=== PATIENT | female | born 1950 | race Caucasian/White ===

== ENCOUNTER 2018-06-29 20:49 | Emergency (ER) | payer MEDICARE ==
[~2018-06-29] VITALS: Ht 162.6 cm; Wt 93.0 kg
[~2018-06-29 20:49] MED LIST: ALLEGRA-D 12 H1 EACH PO; ASPIR 8181 MG PO; BUTALB-ACETAMI1 EACH PO; CALCIUM CARBON500 MG PO; CEFTIN500 MG PO; CITALOPRAM HBR20 MG PO; DITROPAN XL5 MG PO; FISH OIL500 M1 PO; MAXALT10 MG PO; SENNOSIDES8.6 MG PO; SIMVASTATIN20 MG PO; TYLENOL WITH C1 EACH PO; ULTRAM50 MG PO; ZOFRAN ODT4 MG PO
--- OUTSIDE RECORDS SUMMARY | 2018-06-29 20:52 | XMS REPORT | Summary of Care ---
Author Author Miguelito Bravo R.N. Unknown Address Unknown Phone Unavailable Care Team Providers Care Freight Sorter Name Role Phone LIAT RODGERS Unavailable Unavailable HILARIA Barker, ANGELICA Unavailable Unavailable SHANTELLE Barker, MUKUL Unavailable Unavailable HUSEYIN Barker, CAROLYN Unavailable Unavailable Lawrence Shirley, Miguelito Unavailable Unavailable HILARIA GODINEZ, ANGELICA [place] Unavailable Unavailable SHANIA Barker, MILE Unavailable Unavailable DANITA GODINEZ [place], EULOGIO HERRERA Unavailable Unavailable BERENICE GODINEZ [place], MOY GOYAL Unavailable Unavailable Shantelle GODINEZ, Mukul Unavailable Unavailable HUSEYIN GODINEZ, CAROLYN Unavailable Unavailable Unavailable Unavailable Functional Status Name Dates Details Functional status health issues are not documented Status: Name Dates Details Cognitive status health issues are not documented Status: Problems Name Dates Details Paronychia of finger (681.02, L03.019) Status: Active Back pain (724.5, M54.9) Status: Active Microscopic hematuria (599.72, R31.29) Status: Active IBS (irritable bowel syndrome) (564.1, K58.9) Status: Active Kidney stone (592.0, N20.0) Status: Active Urinary incontinence (788.30, R32) Status: Active Flu vaccine need (V04.81, Z23) Status: Active Edema (782.3, R60.9) Status: Active Trigger finger of right thumb (727.03, M65.311) Status: Active Arthralgia (719.40, M25.50) Status: Active Need for pneumococcal vaccine (V03.82, Z23) Status: Active Trigger ring finger of right hand (727.03, M65.341) Status: Active Trigger ring finger of left hand (727.03, M65.342) Status: Active Bronchospasm (519.11, J98.01) Status: Active Peripheral edema (782.3, R60.9) Status: Active Stress (V62.89, F43.9) Status: Active Rhus dermatitis (692.6, L25.5) Status: Active Medicare annual wellness visit, subsequent (V70.0, Z00.00) Status: Active Anxiety disorder (300.00, F41.9) Status: Active Migraine without status migrainosus, not intractable (346.90, G43.909) Status: Active Breast screening (V76.10, Z12.31) Status: Active Postmenopausal state (V49.81, Z78.0) Status: Active Need for hepatitis C screening test (V73.89, Z11.59) Status: Active Advance care planning (V65.49, Z71.89) Status: Active Encounter for mini-mental status examination Status: Active Depression screen (V79.0, Z13.31) Status: Active At low risk for fall (V49.89, Z91.81) Status: Active Shingles (053.9, B02.9) Status: Active Colon cancer screening (V76.51, Z12.11) Status: Active Dermatitis (692.9, L30.9) Status: Active Acute purulent bronchitis (466.0, J20.8) Status: Active Hyperlipidemia (272.4, E78.5) Status: Active Venous insufficiency (chronic) (peripheral) (459.81, I87.2) Status: Active Non-healing ulcer (707.9, L98.499) Status: Active Acute pain of left knee (719.46, M25.562) Status: Active Hip pain, left (719.45, M25.552) Status: Active Medications Name Dates Details Simvastatin 20 MG Oral Tablet TAKE ONE TABLET BY MOUTH ONCE DAILY Quantity: 90 HILARIA M.DCasimiro, ANGELICA * Start : 24-Oct-2013 Active Aspirin 81 MG TABS TAKE 1 TABLET DAILY. * Refills: 0 Active Adenike-D Allergy & Congestion TB24 TAKE 1 TABLET DAILY PRN * Refills: 0 Active Citalopram Hydrobromide 20 MG Oral Tablet TAKE 1 TABLET Daily * Quantity: 90 Refills: 1 HILARIA M.DCasimiro, ANGELICA * Start : 30-Apr-2015 Active Ytuwdgnviy-KSCD-Fykfjrew 50-325-40 MG Oral Capsule TAKE 1 TO 2 CAPSULES BY MOUTH EVERY 4 HOURS NEEDED FOR PAIN * Quantity: 30 Refills: 2 HILARIA M.D., ANGELICA * Start : 05-Dec-2016 Active predniSONE 10 MG Oral Tablet take 3 po x 3 days then 2 po x3 days then 1 po x 3 days * Quantity: 18 Refills: 0 ZARATE P.A., LIAT * Start : 19-Apr-2018 Active valACYclovir HCl - 1 GM Oral Tablet TAKE 1 TABLET BY MOUTH THREE TIMES DAILY * Quantity: 21 Refills: 0 ZARATE P.A., LIAT * Start : 13-May-2018 Active Gabapentin 100 MG Oral Capsule TAKE 1 CAPSULE DAILY * Quantity: 30 Refills: 2 ZARATE P.A., LIAT * Start : 19-Apr-2018 Active Clenpiq 10-3.5-12 MG-GM -GM/160ML Oral Solution Drink first bottle at 5pm, Drink second bottle at 10pm. Follow doctors instruct ions. * Quantity: 1 Refills: 0 MUKUL PEPPER M.D. * Start : 29-Apr-2018 Active 2 x 160 ML Bottle Hydrocortisone 2.5 % External Cream APPLY 2-3 TIMES DAILY TO AFFECTED AREA(S).-1-2 weeks or as needed * Quantity: 1 Refills: 0 CAROLYN FONTANEZ M.D. * Start : 13-May-2018 Active 20 GM Tube SUMAtriptan Succinate 100 MG Oral Tablet TAKE ONE TABLET BY MOUTH NEEDED FOR HEADACHE. MAY REPEAT IN 2 HOURS IF NEEDED . MAX 2 TABS IN 24 HRS. * Quantity: 15 Refills: 2 ANGELICA MANRIQUE M.D. * Start : 05-Jun-2018 Active methylPREDNISolone 4 MG Oral Tablet Therapy Pack TAKE DIRECTED. * Quantity: 1 Refills: 0 ANGELICA MANRIQUE M.D. * Start : 27-Jun-2018 Active 21 Tablet Pack Allergies and Adverse Reactions Name Dates Details No Known Drug Allergies (Allergy) Status: Active Tape (Allergy) Status: Active Past Medical History Name Dates Details History of fatigue (V13.89, Z87.898) Status: Resolved History of hematuria (V13.09, Z87.448) Status: Resolved History of low back pain (V13.59, Z87.39) Status: Resolved History of Migraine without status migrainosus, not intractable (346.90, G43.909) Status: Resolved History of Osteoarthritis (V13.4) Status: Resolved History of Sinusitis (473.9, J32.9) Status: Resolved Personal history of urinary tract infection (V13.02, Z87.440) Status: Resolved Procedures Procedure Dates Details Colonoscopy Date: 29-Apr-2018 XRAY Hip min 2 views [id number] Date: 27-Jun-2018 History of Foot Surgery Completed History of Hysterectomy Completed History of Neuroplasty Decompression Median Nerve At Carpal Tunnel Completed History of Bladder Surgery Completed History of Hand Surgery Completed History of Knee Replacement Completed Immunization Name Dates Details Tetanus on: 29-Feb-2012 Fluzone INJ Lot #: [id number] on: 01-Nov-2012 Influenza Lot #: [id number] on: 06-Dec-2013 Pneumococcal polysaccharide vaccine, 23 valent Lot #: [id number] on: 15-Jan-2014 Fluvirin INJ Lot #: [id number] on: 09-Nov-2014 Fluzone Quadrivalent 0.5 ML Intramuscular Suspension Lot #: [id number] on: 17-Dec-2015 Fluzone Quadrivalent 0.5 ML Intramuscular Suspension Lot #: [id number] on: 29-Nov-2016 Prevnar 13 Intramuscular Suspension Lot #: [id number] on: 29-Nov-2016 Fluzone High-Dose 0.5 ML Intramuscular Suspension Prefilled Syringe Lot #: [id number] on: 14-Nov-2017 Family History Name Dates Details Family history of Diabetes Mellitus (V18.0) Comments: Family History Status: Active Family history of Coronary Artery Disease (V17.49) Comments: Family History Status: Active Family history of Cancer Comments: Family History Status: Active Name Dates Details Family history of Heart Disease (V17.49) Status: Active Name Dates Details Family history of Coronary Artery Disease (V17.49) Status: Active Social History Name Dates Details - Status: Name Dates Details Never smoker Vital Signs Date Test Result Details 6-Rxf-614739:39 BP Systolic 146 mm[Hg] Status: Comments: Location: LUE; Position: Sitting BP Diastolic 69 mm[Hg] Status: Comments: Location: LUE; Position: Sitting Height 63 in Status: Weight 235.4375 lb Status: Body Mass Index Calculated 41.71 kg/m2 Status: Body Surface Area Calculated 2.07 m2 Status: Temperature 97.7 f Status: Comments: Method: Temporal Heart Rate 76 /min Status: Respiration Rate 16 /min Status: Physical Findings 0 Status: Comments: Pain Scale Physical Findings 0 Status: Comments: Alcohol Screen - How many times in the past yr have you had 5 (for M) or 4 (for F) or 4 (for all > 65yrs) or more drinks in a day? Results Date Description Value Details 5-Pbz-216433:24 XRAY Knee 3 views 34544 Knee 3 views SEE NOTES Comments: EXAM: XR KNEE 3 VIEWSDATE: 06/27/2018 15:24 CDTINDICATION: - M25.562 Pain in left kneeCOMPARISON: Bilateral knee series 11/19/2009TECHNIQUE: 3 views of the kneeLaterality: LeftFINDINGS: No acute fracture or malalignment is identified. Severe medial andpatellofemoral compartments. Joint space narrowing with subarticular sclerosis.Large tricompartmental osteophytes.Small knee joint effusion. Small ossified body in the suprapatellar recess.IMPRESSION: Unchanged severe knee osteoarthrosis.--Read by: Wayne Dias MDDictated Date/time: 06/27/18 17:49Electronically Signed by: Wayne Dias MD 06/27/1916:50FINAL REPORT 6-[id number]:23 Hip 2/3 views uni DX SEE NOTES Comments: EXAM: XR HIP 2 VIEW AND AP PELVISDATE: 06/27/2018 15:23 CDTINDICATION: - M25.552 Pain in left hipCOMPARISON: NoneTECHNIQUE: 2 views of the hip and a single AP radiograph of the pelvisLaterality: LeftFINDINGS: No acute fracture or malalignment is identified. Bilateral mildsuperomedial hip joint space narrowing with small marginal osteophytes. Jointspace narrowing, sclerosis, and osteophytes of the left sacroiliac joint. Mildpelvic enthesopathy. Moderate facet arthropathy lower lumbar spine.No soft tissue abnormality is identified.IMPRESSION: 1. Mild bilateral hip osteoarthrosis.2. Moderate left sacroiliac osteoarthrosis.--Read by: Wayne Dias MDDictated Date/time: 06/27/18 17:50Electronically Signed by: Wayne Dias MD 06/27/1916:52FINAL REPORT 5-[id number]:45 Tobacco Use Screening Completed DONE Plan of Care Name Dates Details Planned Observations Planned Goals not documented Planned Encounters Appointment; NIDIA SOTO M.D. On: 07-Aug-2018 10:30 Interventions Provided Discussion/Summary* Guideline Used: * Clinic: [facility] * PT called to report L-knee pain 10/05 unrelieved by recently prescribed methyprednisolone. PT denies any new symptoms, states she is ambulatory with the use of assistive device. Chart review done. Informed pt that there is a walk in clinic today till 1300, pt refused and requested for the oncology consultant to called for recommendations. Spoke with Liat FARAH at [phone], as per PA instructions pt informed to call on Sunday to have MRI and ortho referral scheduled. PT verbalized understanding. Also informed pt that she can take Aleve but pt refused and states she does not want to take medications. * * Home: * Intended Caller Action: * Other: Speak with clinical staff. * Additional Information: * Information given. Instructions Name Dates Details Instructions not documented Encounters Appointment; ANGELICA MANRIQUE M.D. Encounter Diagnosis: Problem not documented On: 29-Nov-2016 9:00 Appointment; EVANS GREER M.D. Encounter Diagnosis: Problem not documented On: 14-Dec-2016 8:15 Appointment; ANGELICA MANRIQUE M.D. Encounter Diagnosis: Problem not documented On: 14-Dec-2016 10:00 Appointment; ANGELICA MANRIQUE M.D. Encounter Diagnosis: Problem not documented On: 11-Jan-2017 9:30 Appointment; STEPAN RICKS D.O. Encounter Diagnosis: Problem not documented On: 12-Mar-2017 16:30 Appointment; ANGELICA MANRIQUE M.D. Encounter Diagnosis: Problem not documented On: 11-Sep-2017 10:30 Appointment; ANGELICA MANRIQUE M.D. Encounter Diagnosis: Problem not documented On: 14-Nov-2017 9:00 Appointment; ANGELICA MANRIQUE M.D. Encounter Diagnosis: Problem not documented On: 03-Apr-2018 9:00 Appointment; LIAT ZARATE P.A. Encounter Diagnosis: Problem not documented On: 19-Apr-2018 14:45 Appointment; MUKUL PEPPER M.D. Encounter Diagnosis: Problem not documented On: 29-Apr-2018 10:15 Appointment; CAROLYN FONTANEZ M.D. Encounter Diagnosis: Problem not documented On: 13-May-2018 9:30 Appointment; ANGELICA MANRIQUE M.D. Encounter Diagnosis: Problem not documented On: 24-May-2018 9:15 Appointment; EULOGIO SAMAYOA M.D. Encounter Diagnosis: Problem not documented On: 07-Jun-2018 9:15 Appointment; ANGELICA MANRIQUE M.D. Encounter Diagnosis: Problem not documented On: 27-Jun-2018 14:45
[2018-06-29] MEDS ORDERED: KETOROLAC TROMETHAMINE 60 MG/2 ML VIAL IM ONE (22:15)
[2018-06-29] MEDS ORDERED: HYDROCODONE/APAP 10MG-325MG TAB PO ONE (22:15)
--- NOTE | 2018-06-29 22:34 | Diagnostic Imaging Report ---
KNEE LEFT THREE VIEWS - 3 views HISTORY: Pain COMPARISON: None available. FINDINGS: No acute fracture or dislocation. Tricompartmental degenerative changes, most severe at the patellofemoral compartment. No suprapatellar joint effusion. Medial collateral ligament and quadriceps tendon calcifications. IMPRESSION: No acute fracture or dislocation. Tricompartmental degenerative changes, most severe at the patellofemoral compartment. Signed by: Dr. Abiodun Brown MD on 06/29/2018 10:31 PM
[2018-06-29] MEDS ORDERED: ULTRAM50 MG PO (22:40)
--- NOTE | 2018-06-29 22:50 | NUR ---
KNEE IMMOBILIZER PLACED TO L LEG AND ADJUSTED TO COMFORT
== END 2018-06-29 22:53 | disposition home or self-care (01) ==
LOC: ER 20:49
DX: S80.02XA Contusion of left knee, initial encounter (principal); S83.412A Sprain of medial collateral ligament of left knee, initial encounter; M17.12 Unilateral primary osteoarthritis, left knee; E78.5 Hyperlipidemia, unspecified; F41.9 Anxiety disorder, unspecified; F32.9 Major depressive disorder, single episode, unspecified
CPT/HCPCS: 29530; 73562; 96372; 99283; J1885

== ENCOUNTER 2018-09-23 18:10 | Emergency (ER) | payer MEDICARE ==
[~2018-09-23] VITALS: Ht 162.6 cm; Wt 93.0 kg
--- OUTSIDE RECORDS SUMMARY | 2018-09-23 18:14 | XMS REPORT ---
Author Author [facility] Address Unknown Phone Unavailable Care Team Providers Care Field Court Researcher Name Role Phone Edwige ERICKSON Unavailable Unavailable Problems This patient has no known problems. Allergies, Adverse Reactions, Alerts This patient has no known allergies or adverse reactions. Medications This patient has no known medications. Results Test Description Test Time Test Comments Text Results Atomic Results Result Comments KNEE LEFT THREE VIEWS 2018-06-29 22:28:00 [place] [address] Patient Name: CARMELITA MEADOWS MR #: [id number] : 1950 Age/Sex: 67/F Req #: [id number] Adm Physician: Ordered by: RADHA ERICKSON MD Report #: [id number] Location: ER Room/Bed: Procedure: [id number] DX/KNEE LEFT THREE VIEWS Exam Date: 06/29/18 Exam Time: 2114 REPORT STATUS: Signed KNEE LEFT THREE VIEWS - 3 views HISTORY: Pain COMPARISON: None available. FINDINGS: No acute fracture or dislocation. Tricompartmental degenerative changes, most severe at the patellofemoral compartment. No suprapatellar joint effusion. Medial collateral ligament and quadriceps tendon calcifications. IMPRESSION: No acute fracture or dislocation. Tricompartmental degenerative changes, most severe at the patellofemoral compartment. Signed by: Dr. Abiodun Hubbard MD on 06/29/2018 10:31 PM Dictated By: ABIODUN HUBBARD MD 30 Transcribed By: DUSTIN on 06/29/182230 COPY TO: RADHA ERICKSON MD
--- OUTSIDE RECORDS SUMMARY | 2018-09-23 18:14 | XMS REPORT | Summary of Care ---
Author Author Simona Coleman M.A. Unknown Address Unknown Phone Unavailable Care Team Providers Care Organizational Development Consultant Name Role Phone Simona Coleman M.A. Unavailable Unavailable ZARATE P.A., NOHELIA Unavailable Unavailable HILARIA Barker, ANGELICA Unavailable Unavailable SHANTELLE Barker, MUKUL Unavailable Unavailable HUSEYIN Barker, CAROLYN Unavailable Unavailable HILARIA GODINEZ, ANGELICA [place] Unavailable Unavailable DANITA GODINEZ [place], EULOGIO HERRERA Unavailable Unavailable BERENCIE GODINEZ [place], MOY GOYAL Unavailable Unavailable Shantelle GODINEZ, Mukul Unavailable Unavailable HUSEYIN GODINEZ, CAROLYN Unavailable Unavailable DAVID GODINEZ [place], LEOLA Guerrero Unavailable Unavailable SHANIA Barker, MILE Unavailable Unavailable Unavailable Unavailable Functional Status Name [...] Hip pain, left (719.45, M25.552) Status: Active Arthritis of knee, left (716.96, M17.12) Status: Active Arthritis of left hip (716.95, M16.12) Status: Active Medications Name Dates Details Simvastatin 20 MG Oral Tablet TAKE ONE TABLET BY MOUTH ONCE DAILY Quantity: 90 ANGELICA MANRIQUE M.D. * Start : 24-Oct-2013 Active Aspirin 81 MG TABS TAKE 1 TABLET DAILY. * Refills: 0 Active Adenike-D Allergy & Congestion TB24 TAKE 1 TABLET DAILY PRN * Refills: 0 Active Citalopram Hydrobromide 20 MG Oral Tablet TAKE 1 TABLET Daily * Quantity: 90 Refills: 0 ANGELICA MANRIQUE M.D. * Start : 30-Apr-2015 Active Amaihfhppi-CQTU-Uekdgkyq 50-325-40 MG Oral Capsule TAKE 1 TO 2 CAPSULES BY MOUTH EVERY 4 HOURS NEEDED FOR PAIN * Quantity: 30 Refills: 2 ANGELICA MANRIQUE M.D. * Start : 05-Dec-2016 Active predniSONE 10 MG Oral Tablet take 3 po x 3 days then 2 po x3 days then 1 po x 3 days * Quantity: 18 Refills: 0 ZARATE P.A., NOHELIA * Start : 19-Apr-2018 Active valACYclovir HCl - 1 GM Oral Tablet TAKE 1 TABLET BY MOUTH THREE TIMES DAILY * Quantity: 21 Refills: 0 ZARATE P.A., NOHELIA * Start : 13-May-2018 Active Gabapentin 100 MG Oral Capsule TAKE 1 CAPSULE DAILY * Quantity: 30 Refills: 2 ZARATE P.A., NOHELIA * Start : 19-Apr-2018 Active Clenpiq 10-3.5-12 [...] 2 TABS IN 24 HRS. * Quantity: 36 Refills: 0 ANGELICA MANRIQUE M.D. * Start : 05-Jun-2018 [...] Z87.440) Status: Resolved Procedures Procedure Dates Details XRAY Hip min 2 views [id number] Date: 27-Jun-2018 History of Foot Surgery Completed History of Hysterectomy Completed History of Neuroplasty Decompression Median Nerve At Carpal Tunnel Completed History of Bladder Surgery Completed History of Hand Surgery Completed History of Knee Replacement Completed Immunization Name Dates Details Tetanus on: 29-Feb-2012 Fluzone INJ Lot #: [id number] on: 01-Nov-2012 Influenza Lot #: [id number] on: 06-Dec-2013 Pneumococcal polysaccharide vaccine, 23 valent Lot #: [id number] on: 15-Jan-2014 Fluvirin INJ Lot #: [id number] on: 09-Nov-2014 Fluzone Quadrivalent 0.5 ML Intramuscular Suspension Lot #: [id number] on: 17-Dec-2015 Fluzone Quadrivalent 0.5 ML Intramuscular Suspension Lot #: [id number] on: 29-Nov-2016 Prevnar 13 Intramuscular Suspension Lot #: [id number] on: 29-Nov-2016 Fluzone High-Dose 0.5 ML Intramuscular Suspension Prefilled Syringe Lot #: [id number] on: 14-Nov-2017 Family History Name Dates Details [...] smoker Vital Signs Date Test Result Details No Known Vitals to report Results Date Description Value Details Results not documented Plan of Care Name Dates Details Planned Observations Planned Goals not documented Interventions Provided Medication Changes* Citalopram Hydrobromide 20 MG Oral Tablet - Renew * Simvastatin 20 MG Oral Tablet - Renew * SUMAtriptan Succinate 100 MG Oral Tablet - Renew Instructions Name Dates Details Instructions not documented [...] Problem not documented On: 03-Apr-2018 9:00 Appointment; NOHELIA ZARATE P.A. Encounter Diagnosis: Problem not documented [...] Diagnosis: Problem not documented On: 27-Jun-2018 14:45 Appointment; LEOLA HERNANDEZ M.D. Encounter Diagnosis: Problem not documented On: 05-Jul-2018 15:00
[2018-09-23 21:27] VITALS: BP 164/68
== END 2018-09-23 21:33 | disposition home or self-care (01) ==
LOC: ER 18:10
DX: Z96.652 Presence of left artificial knee joint (principal); M25.562 Pain in left knee; M25.462 Effusion, left knee; R60.9 Edema, unspecified; E78.5 Hyperlipidemia, unspecified; F41.9 Anxiety disorder, unspecified; F32.9 Major depressive disorder, single episode, unspecified
CPT/HCPCS: 93971; 99283